=== PATIENT | male | born 1960 | race Caucasian/White ===

== ENCOUNTER 2018-08-26 02:36 | Outpatient (CLI) | payer BC, SELFPAY ==
--- NOTE | 2018-08-29 11:02 | HOLTER_ITS ---
DATE OF DICTATION: August 29, 2018 Baseline rhythm sinus. Rare single PAC. Single burst of SVT, 3-beat duration at 118 bpm. Frequent single PVC, 3620 total, 3.1% of total beat. Five couplet. No VT. No bradycardia. SYMPTOMS: Rapid breathing noted twice during sinus 71, 97 bpm. Dizziness noted twice, once during sinus rhythm 59 bpm, once noted during sinus rhythm bigeminal PVC' s 82 bpm. Chest pain/flutter noted once during sinus rhythm 65 bpm, no ST-T wave changes. Flutter noted once during sinus rhythm 63 bpm. Average heart rate 66 bpm, range 51-120 bpm.
== END 2018-08-26 02:56 ==
PROVIDERS: PCP Physician Assistant Medical; Visit Provider Physician Assistant Medical
DX: I47.1 Supraventricular tachycardia (principal); I49.1 Atrial premature depolarization; I49.3 Ventricular premature depolarization
CPT/HCPCS: 93225

== ENCOUNTER 2018-08-28 10:31 | Outpatient (CLI) | payer BC, SELFPAY | END 2018-08-28 10:51 | PROVIDERS: PCP Physician Assistant Medical; Visit Provider Physician Assistant Medical | DX: I47.1 Supraventricular tachycardia (principal); I49.1 Atrial premature depolarization; I49.3 Ventricular premature depolarization | CPT/HCPCS: 93226 ==

== ENCOUNTER 2018-09-02 00:27 | Outpatient (CLI) | payer BC, SELFPAY ==
--- NOTE | 2018-09-02 10:30 | ETT_ITS ---
*[facility]* *[facility]* [address] [place] [address] Stress Electrocardiography [place] protocol Date of study: 09/02/2018 *PATIENT PRESENTATION* Height: 175.3cm (69in) Blood Pressure: Weight: 79.5kg (175lb) BSA: 1.98m^2 Referring physician: Jose M Dejesus V Ordering physician: Jose M Dejesus V Impressions: Normal study after maximal exercise. Summary: 1. Stress ECG conclusions: The stress ECG is negative. Occasional ventricular ectopy. 2. Stress: The target heart rate was achieved. There is a normal resting blood pressure with an appropriate response to stress. The patient experienced no chest pain during stress. Exercise capacity is above normal for age. Indication: I49.3. History: REASON FOR VISIT: PREMATURE VENTRICULAR CONTRACTIONS. PRESURGICAL SCREENING FOR PLANNED KNEE SURGERY IN NOVEMBER 2018. PT REPORTS INTERMITTENT PALPITATIONS ASSOCIATED WITH EXERCISE. Risk factors: FATHER HAD A HEART ATTACK AND TRIPLE BYPASS AT AGE 55 YEARS. Family history of coronary artery disease. Cholesterol: 155mg/dl. HDL: 58mg/dl. LDL: 92mg/dl. Triglycerides: 63mg/dl. ALLERGIES: NO KNOWN ALLERGIES. MEDICATIONS: CELEBREX PRN. TYLENOL PRN. Protocol: [place] protocol. Baseline ECG: SINUS RHYTHM. HR 61 BPM. Stress protocol: + +---+ + !Stage !HR !BP (mmHg) ! + +---+ + !Baseline supine !61 !122/60 (81) ! + +---+ + !Baseline standing !67 !122/70 (87) ! + +---+ + !Stage I; 1.7mph, 10degrees; 3 min !100!132/76 (95) ! + +---+ + !Stage II; 2.5mph, 12degrees; 3 min !118!174/102 (126)! + +---+ + !Stage III; 3.4mph, 14degrees; 3 min!118!170/90 (117) ! + +---+ + !Stage IV; 4.2mph, 16degrees; 3 min !141!182/90 (121) ! + +---+ + !Stage V; 5mph, 18degrees; 3 min !158! ! + +---+ + !Peak stress !167! ! + +---+ + !Immediate post stress !136!180/82 (115) ! + +---+ + !Recovery; 3 min !94 !180/80 (113) ! + +---+ + !Recovery; 6 min !88 !124/72 (89) ! + +---+ + * Stress results: Maximal heart rate during stress was 167bpm (102% of maximal predicted heart rate). The maximal predicted heart rate was 164bpm. The target heart rate was achieved. There is a normal resting blood pressure with an appropriate response to stress. The rate-pressure product for the peak heart rate and blood pressure was 17867ov Hg/min. The patient experienced no chest pain during stress. Exercise capacity is above normal for age. Stress ECG: TREADMILL PORTION OF STRESS TEST ENDED IN 13 MINUTES & 35 SECONDS BECAUSE OF FATIGUE. NORMAL HEART RATE AND BLOOD PRESSURE RESPONSE TO EXERCISE. OCCASIONAL PVCs DURING EXERCISE. COUPLETS SEEN X2 DURING EXERCISE. VENTRICULAR BIGEMINY OCCURED AT 4 MINUTE RECOVERY TIME AND SUBSIDED BY 5 MINUTES RECOVERY TIME. APPROXIMATE METS ACHIEVED = 14.56 NO ANGINA NO SIGNIFICANT ST SEGMENT CHANGES. ABOVE AVERAGE FUNCTIONAL CAPACITY FOR EXERCISE. The stress ECG is negative. Occasional ventricular ectopy. Study data: Linnea Fuentes MD supervised and was readily available during the procedure. This study was interpreted by [facility]. Study status: Routine. Consent: The risks, benefits, and alternatives to the procedure were explained to the patient and informed consent was obtained. Procedure: Initial setup. A baseline ECG was recorded. Surface ECG leads and manual cuff blood pressure measurements were monitored. Heart sounds: Normal. Lung sounds: Normal. Treadmill exercise testing was performed using the [place] protocol. Study completion: The patient tolerated the procedure well and was discharged from the lab. Discharge: The patient left the laboratory in stable condition. Birthdate: Patient birthdate: 1960. Sex: Gender: male. Study date: Study date: 09/02/2018. Study time: 10:30 AM. Signature Documentation: The Stress ECG portion of this study was interpreted by Linnea Fuentes MD. Electronically signed by Linnea Fuentes 09/02/2018 18:03
== END 2018-09-02 00:47 ==
PROVIDERS: PCP Physician Assistant Medical; Visit Provider Physician Assistant Medical
DX: I49.3 Ventricular premature depolarization (principal); R00.2 Palpitations; Z82.49 Family history of ischemic heart disease and other diseases of the circulatory system
CPT/HCPCS: 93017

== ENCOUNTER 2018-09-07 00:12 | Outpatient (CLI) | payer BC, SELFPAY ==
--- NOTE | 2018-09-07 09:35 | MERGE_ITS ---
*[facility]* *[facility]* [address] [place] [address] Date of study: 09/07/2018 Transthoracic Echocardiography M-mode, complete 2D, complete spectral Doppler, and color Doppler *STUDY CONCLUSIONS* Summary: 1. Left ventricle: The cavity size was normal. Wall thickness was normal. Systolic function was normal. The estimated ejection fraction was 55-60%. Wall motion was normal; there were no regional wall motion abnormalities. 2. Right ventricle: The cavity size was normal. Wall thickness was normal. Systolic function was normal. *PATIENT PRESENTATION* Height: 175.3cm ((69in) ) S/D Pressure: 116 / 70 Weight: 79.4kg ((174.6lb) ) BSA: 1.98m^2 Test start time: 07:40 AM. Test stop time: 08:40 AM. PERFORMING [facility] ASSAYER HELPER RT Amina (R)(CT), [facility] CONSULTING Jose M Dejesus V ORDERING Jose M Dejesus Benjamin V *PROCEDURE DATA* Procedure information: The patient was identified by two identifiers. This study was interpreted by [facility]. Pertinent images and digital data are archived for permanent storage and are available for subsequent review. No prior study was available for comparison. Study status: Routine. Transthoracic echocardiography. M-mode, complete 2D, complete spectral Doppler, and color Doppler. A Transthoracic Echocardiogram was performed. Scanning was performed from the parasternal, apical, subcostal, and suprasternal notch acoustic windows. Images were obtained using an [id number] cardiac ultrasound machine. Image quality was adequate. Study completion: The patient tolerated the procedure well. There were no complications. History: PMH: PVCs. *CARDIAC ANATOMY* Left ventricle: The cavity size was normal. Wall thickness was normal. Systolic function was normal. The estimated ejection fraction was 55-60%. Wall motion was normal; there were no regional wall motion abnormalities. Diastolic parameters were normal. Aortic valve: Trileaflet; normal thickness leaflets. Mobility was not restricted. Doppler: Transvalvular velocity was within the normal range. There was no stenosis. There was no significant regurgitation. VTI ratio of LVOT to aortic valve: 0.8. Valve area (VTI): 3cm^2. Indexed valve area (VTI): 1.5cm^2/m^2. Peak velocity ratio of LVOT to aortic valve: 0.78. Valve area (Vmax): 2.9cm^2. Indexed valve area (Vmax): 1.5cm^2/m^2. Mean velocity ratio of LVOT to aortic valve: 0.69. Valve area (Vmean): 2.6cm^2. Indexed valve area (Vmean): 1.3cm^2/m^2. Mean gradient (S): 5mm Hg. Peak gradient (S): 8mm Hg. Aorta: Aortic root: The aortic root was normal in size. Mitral valve: Structurally normal valve. Mobility was not restricted. Doppler: Transvalvular velocity was within the normal range. There was no evidence for stenosis. There was no significant regurgitation. Valve area by pressure half-time: 3.9cm^2. Indexed valve area by pressure half-time: 1.9cm^2/m^2. Left atrium: The atrium was normal in size. Right ventricle: The cavity size was normal. Wall thickness was normal. Systolic function was normal. Pulmonic valve: Structurally normal valve. Doppler: Transvalvular velocity was within the normal range. There was no evidence for stenosis. There was trivial regurgitation. Tricuspid valve: Structurally normal valve. Doppler: Transvalvular velocity was within the normal range. There was no evidence for stenosis. There was trivial regurgitation. Pulmonary artery: Pulmonary systolic pressure was within the normal range. The tricuspid jet envelope definition was inadequate for estimation of RV systolic pressure. There were no indirect findings (abnormal RV volume or geometry, altered pulmonary flow velocity profile, or leftward septal displacement) to suggest moderate or severe pulmonary hypertension. Right atrium: The atrium was normal in size. Pericardium: There was no pericardial effusion. Systemic veins: Inferior vena cava: Well visualized. The vessel was patent and normal in size. The respirophasic diameter changes were in the normal range (greater than or equal to 50%). Baseline ECG: Normal sinus rhythm. Measurements Left ventricle Value Reference LV ID, ED, PLAX 5.3 cm 3.5 - 6.0 LV ID, ES, PLAX 3.5 cm 2.1 - 4.0 LV PW thickness, ED, PLAX 0.9 cm LV end-diastolic volume, 1-p A2C 104 ml LV ejection fraction, 1-p A2C 58 % LV end-diastolic volume, 1-p A4C 112 ml LV ejection fraction, 1-p A4C 55 % LV e', lateral 0.108 m/sec LV E/e', lateral 5 LV e', medial 0.09 m/sec LV E/e', medial 6 LV e', average 0.099 m/sec LV E/e', average 6 Ventricular septum Value Reference IVS thickness, ED, PLAX 1.0 cm LVOT Value Reference LVOT ID, A-P 2.2 cm LVOT area 3.8 cm^2 LVOT peak velocity, S 1.11 m/sec LVOT mean velocity, S 0.74 m/sec LVOT VTI, S 24.7 cm LVOT peak gradient, S 4.9 mm Hg LVOT mean gradient, S 2.5 mm Hg Stroke volume (SV), LVOT DP 93 ml Stroke index (SV/bsa), LVOT DP 47 ml/m^2 Aortic valve Value Reference Aortic valve peak velocity, S 1.4 m/sec Aortic valve mean velocity, S 1.08 m/sec Aortic valve VTI, S 31.0 cm Aortic mean gradient, S 5 mm Hg Aortic peak gradient, S 8 mm Hg VTI ratio, LVOT/AV 0.8 Aortic valve area, VTI 3 cm^2 Velocity ratio, peak, LVOT/AV 0.78 Aortic valve area, peak velocity 2.9 cm^2 Velocity ratio, mean, LVOT/AV 0.69 Aortic valve area, mean velocity 2.6 cm^2 Aortic valve area/bsa, mean velocity 1.3 cm^2/m^2 Aorta Value Reference Aortic root ID, ED 3.0 cm Ascending aorta ID, A-P, S 3.4 cm Left atrium Value Reference LA ID, A-P, ES 3.9 cm LA ID/bsa, A-P 2.0 cm/m^2 <=2.2 LA area, ES, A4C 18.9 cm^2 8.8 - 23.4 LA area, ES, A2C 20 cm^2 LA volume/bsa, ES, 1-p A4C 29 ml/m^2 LA volume, ES, 2-p 55 ml LA volume/bsa, ES, 2-p 28 ml/m^2 LA/aortic root ratio 1.28 Mitral valve Value Reference Mitral E-wave peak velocity 0.58 m/sec Mitral A-wave peak velocity 0.5 m/sec Mitral deceleration time 197 ms 150 - 230 Mitral pressure half-time 57 ms Mitral E/A ratio, peak 1.15 Mitral valve area, PHT, DP 3.9 cm^2 Pulmonary veins Value Reference Pulmonary vein peak velocity, S 0.56 m/sec Pulmonary vein peak velocity, D 0.34 m/sec Pulmonary vein velocity ratio, peak, 1.61 S/D Pulmonary vein A-wave reversal peak 0.31 m/sec velocity Tricuspid valve Value Reference Tricuspid regurg peak velocity 2.9 m/sec Tricuspid peak RV-RA gradient 34 mm Hg Right atrium Value Reference RA area, ES, A4C 15.3 cm^2 8.3 - 19.5 Legend: (L) and (H) minerva values outside specified reference range. I have personally reviewed the images and have reviewed and edited the reported findings. Electronically signed by Davie Day 09/07/2018 09:27
== END 2018-09-07 00:32 ==
PROVIDERS: PCP Physician Assistant Medical; Visit Provider Physician Assistant Medical
DX: I49.3 Ventricular premature depolarization (principal); I47.1 Supraventricular tachycardia
CPT/HCPCS: 93306